=== PATIENT | female | born 1955 | race Two or more races ===

== ENCOUNTER 2021-05-11 12:49 | Inpatient (IN) | payer MEDICAID ==
[~2021-05-11] VITALS: Ht 172.7 cm; Wt 90.7 kg
--- NOTE | 2021-05-11 13:16 | NUR ---
FROM HOME FOR RIGHT LOWER QUANDRANT PAIN. RATES PAIN 10/10. ABDOMEN SOFT AND NON-DISTENDED. IN ROOM AIR AND DENIES SOB. RESPIRATION REGULAR AND UNLABORED. ATTACHED TO THE MONITOR. WILL CONTINUE TO MONITOR THE PATIENT.
[2021-05-11] MEDS ORDERED: ONDANSETRON HCL/PF 4 MG/2 ML VIAL ONE (13:41)
--- NOTE | 2021-05-11 13:45 | NUR ---
SALINE LOCK ESTABLISHED, RAC 20G
--- NOTE | 2021-05-11 13:54 | NUR ---
LAB AT BEDSIDE
[2021-05-11] MEDS ORDERED: ONDANSETRON HCL/PF - ER 4 MG/2 ML VIAL IV ONE (14:00)
[2021-05-11] MEDS ORDERED: IV NS 0.9% 1,000 ML BAG IV ONE ×2 (14:00→15:00)
[2021-05-11 14:04] LABS: BASOPHILS % (AUTO) 0.2 % (0.0-2.0); EOSINOPHILS % (AUTO) 0.3 % (0.0-6.0); HEMATOCRIT 48 % (33-45); LYMPHOCYTES # (AUTO) 0.8 K/uL (0.8-4.8); LYMPHOCYTES % (AUTO) 4.9 % (20.0-44.0); MEAN CORPUSCULAR HGB CONC 34 g/dl (31.0-36.0); MEAN CORPUSCULAR VOLUME 97 fL (82-100); MONOCYTES # (AUTO) 0.1 K/uL (0.1-1.30); MONOCYTES % (AUTO) 0.5 % (2.0-12.0); NEUTROPHILS # (AUTO) 14.7 K/uL (1.8-8.9); NEUTROPHILS % (AUTO) 94.1 % (43.0-81.0); PLATELET COUNT (AUTO) 264 K/uL (150-450); RED BLOOD CELL COUNT(AUTO) 4.94 MIL/uL (4.0-5.2); WHITE BLOOD COUNT (AUTO) 15.6 K/uL (4.3-11.0)
[2021-05-11 14:05] LABS: CALCIUM, SERUM 9.3 mg/dL (8.5-10.1); CREATININE 0.8 mg/dL (0.6-1.3); POTASSIUM 4.1 mmol/L (3.5-5.1)
[2021-05-11 14:12] LABS: ALBUMIN 4.4 g/dL (3.4-5.0); BILIRUBIN,DIRECT 0.3 mg/dL (0.0-0.2); BILIRUBIN,TOTAL 1.2 mg/dL (0.2-1.0); TOTAL PROTEIN, SERUM 7.9 g/dL (6.4-8.2)
[2021-05-11] MEDS ORDERED: IV NS 0.9% 250 ML IV ONE (14:22)
[2021-05-11] MEDS ORDERED: IOHEXOL-300 100 ML VIAL IV ONE (14:22)
--- NOTE | 2021-05-11 14:25 | NUR ---
THE PATIENT IS IN THE RESTROOM
[2021-05-11] MEDS ORDERED: CEFTRIAXONE 1GM BAG (ER ONLY) 50 ML IV ONE ×2 (14:30→14:51)
[2021-05-11] MEDS ORDERED: METRONIDAZOLE 500MG/ NS 100ML 100 ML IV ONE (14:30)
--- NOTE | 2021-05-11 14:30 | NUR ---
URINE COLLECTED AND SENT TO THE LAB
--- NOTE | 2021-05-11 14:32 | NUR ---
THE PATIENT IS TAKEN TO CT
--- NOTE | 2021-05-11 14:41 | NUR ---
THE PATIENT IS BACK FROM CT
--- NOTE | 2021-05-11 14:57 | NUR ---
CHIP ON THE PHONE WITH DR. PEOPLES.
[2021-05-11] MEDS ORDERED: PITA2TAB PO (15:08)
[2021-05-11] MEDS ORDERED: LEVO125T8 PO (15:08)
[2021-05-11] MEDS ORDERED: ASCO-352 PO (15:12)
[2021-05-11] MEDS ORDERED: MULT-447 PO (15:12)
[2021-05-11 15:20] LABS: BILIRUBIN,URINE Negative (NEGATIVE); COLOR,URINE YELLOW (YELLOW); LEUKOCYTE ESTERASE ,URINE Negative (NEGATIVE); NITRITE, URINE Negative (NEGATIVE); PROTEIN,URINE Negative (NEGATIVE); UGLUCOSE Negative (NEGATIVE); UROBILINOGEN,URINE 0.2 EU/dL (0.2)
--- NOTE | 2021-05-11 15:24 | NUR ---
COVID SWAB DONE AND SENT TO THE LAB
[2021-05-11] MEDS ORDERED: IV LR 1000 ML 1,000 ML BAG IV ONE (16:00)
--- NOTE | 2021-05-11 16:09 | NUR ---
REPORT GIVEN TO BO MAYS. PT AWAITING TRANSFER TO FLOOR.
--- NOTE | 2021-05-11 16:54 | NUR ---
THE PATIENT IS TRANSFERED TO ROOM 307 IN STABLE CONDITION AND PER POLICY.
--- NOTE | 2021-05-11 17:00 | NUR ---
[employer]ATION INSPECT[employer]RARY MEDIA SPECIALIST NOTES RECEIVED ADMISSION FROM ER. PATIENT A/O X4, ABLE TO MAKE NEEDS KNOWN. PATIENT ON ROOM AIR; BREATHING EVEN AND UNLABORED; NO SOB PRESENT. COMPLAINING OF MILD PAIN 4 OUT OF 10. VS WNL EXCEPT MILD FEVER OF 100.4. PRN TYLENOL ADMINISTERED. SAFETY PRECAUTIONS IN PLACE; BED IN LOW POSITION AND LOCKED, RAILS UP X2, CALL LIGTH WITHIN REACH. WILL CONTINUE TO MONITOR PATIENT.
[2021-05-11] MEDS: IV NS 0.9% 1,000 ML IV PRN (17:47)
[2021-05-11] MEDS: ACETAMINOPHEN 325 MG TABLET PO PRN (17:58)
[2021-05-11] MEDS: ATORVASTATIN 10 MG TABLET PO SCH (17:58)
[2021-05-11 18:00] VITALS: BP 128/79
[2021-05-11] MEDS ORDERED: Z GUARD REMEDY 2 OZ OINT TP PRN (18:00)
[2021-05-11] MEDS ORDERED: ONDANSETRON HCL/PF 4 MG/2 ML VIAL IVP PRN (18:00)
[2021-05-11] MEDS ORDERED: MORPHINE SULFATE INJ 2 MG/ML DISP.SYRIN IV PRN (18:00)
--- NOTE | 2021-05-11 18:47 | NUR ---
[facility] CAMER[facility]AN CLOSING NOTES: PATIENT REMAINS IN BED, AWAKE, A/OX4. PATIENT ON ROOM AIR; BREATHING EVEN AND UNLABORED; NO SOB NOTED. TELE MONITOR WITH A CURRENT READING OF NSR 76. RAC IV ACCESS PRESENT AND INTACT RUNNING NS @75 MLS/HR. ALL NEEDS ATTENDED. SAFETY PRECAUTIONS IN PLACE; BED IN LOW POSITION AND LOCKED, RAILS UP X2, CALL LIGHT WITHIN REACH. WILL ENDORSE TO CDA TEACHER NURSE.
[2021-05-11] MEDS: PIPERACILLIN /TAZOBACTAM 3.375 G in IV D5W 50 ML IV SCH (19:03)
--- NOTE | 2021-05-11 19:40 | NUR ---
television journalist opening received patient a/ox4. does not want to be disturbed, per patient she wants to sleep/rest for her surgery tomorrow. no s/s of apparent distress, tolerating room air. denies pain. tele monitor reading sinus rhythm 70's. IV NS running @75ml/hr. no fever at this time. will cont. to monitor patient.
[2021-05-11 20:00] VITALS: BP 86/46
--- NOTE | 2021-05-11 20:30 | NUR ---
ms rn note patient low bp, 86/46. asymptomatic. stable at this time. will cont. to monitor.
[2021-05-12] VITALS: BP 139/58
--- NOTE | 2021-05-12 | NUR ---
telephone clerk note MRSA Surveillance both nares done at this time.
[2021-05-12] MEDS: PIPERACILLIN /TAZOBACTAM 3.375 G in IV D5W 50 ML IV SCH ×4 (00:08→17:02)
[2021-05-12 04:00] VITALS: BP 146/68
--- NOTE | 2021-05-12 05:30 | NUR ---
ms rn note patient taken down by OR at this time, very enthusiastic. v/s as follow: bp- 97/59, t- 98.0, p-73, rr-20, 02 sat 98% in room air. patient will come back after surgery according to OR nurse. Oxygen ready at bed side.
[2021-05-12] MEDS ORDERED: BUPIVACAINE 0.5 % PF 150 MG/30 ML VIAL ONE (05:44)
[2021-05-12] MEDS ORDERED: FENTANYL PF 100MCG/2ML AMPUL ONE ×2 (05:51→06:55)
[2021-05-12] MEDS ORDERED: MIDAZOLAM HCL 2 MG/2ML VIAL ONE (05:51)
[2021-05-12] MEDS ORDERED: SUCCINYLCHOLINE CHLORIDE 20 MG/ML VIAL ONE (05:52)
[2021-05-12] MEDS ORDERED: PROPOFOL 20 ML IV ONE (05:52)
[2021-05-12] MEDS ORDERED: ROCURONIUM BROMIDE 50 MG/5 ML ONE (05:52)
[2021-05-12] MEDS ORDERED: SEVOFLURANE 250 ML BOTTLE IH ONE (05:53)
--- NOTE | 2021-05-12 06:04 | NUR ---
telecommunications equipment installer note Non-administered Zosyn given in the OR by OR nurse.
[2021-05-12 06:12] LABS: BASOPHILS % (AUTO) 0.3 % (0.0-2.0); EOSINOPHILS % (AUTO) 0.9 % (0.0-6.0); HEMATOCRIT 38 % (33-45); HEMOGLOBIN 12.9 g/dL (11.5-14.8); LYMPHOCYTES % (AUTO) 7.2 % (20.0-44.0); MEAN CORPUSCULAR HGB CONC 34 g/dl (31.0-36.0); MEAN CORPUSCULAR VOLUME 98 fL (82-100); MONOCYTES # (AUTO) 0.6 K/uL (0.1-1.30); MONOCYTES % (AUTO) 4.2 % (2.0-12.0); NEUTROPHILS # (AUTO) 11.9 K/uL (1.8-8.9); NEUTROPHILS % (AUTO) 87.4 % (43.0-81.0); PLATELET COUNT (AUTO) 209 K/uL (150-450); RED BLOOD CELL COUNT(AUTO) 3.88 MIL/uL (4.0-5.2); WHITE BLOOD COUNT (AUTO) 13.6 K/uL (4.3-11.0)
[2021-05-12 06:49] LABS: CALCIUM, SERUM 8.4 mg/dL (8.5-10.1); CREATININE 0.8 mg/dL (0.6-1.3); POTASSIUM 3.4 mmol/L (3.5-5.1); TOTAL PROTEIN, SERUM 5.8 g/dL (6.4-8.2)
--- NOTE | 2021-05-12 06:56 | NUR ---
telesales agent note Patient Blood culture came back + for Gram Negative Rods. Reported result to Doctor Kye.
--- NOTE | 2021-05-12 07:58 | NUR ---
CUSTOMER DEVELOPMENT REPRESENTATIVE NOTE Pt back from [facility]-appendectomy, awake, No SOB, no respiratory distress. Has 3 incision on abdomen with mepilex on sites, with no s/sx bleeding. Orders to resume diet, noted and carried out. Patient states current pain is tolerable 3/10, received fentanyl tolerated well. Safety precautions implemented, bed locked in lowest position, call light within reach.
[2021-05-12 08:00] VITALS: BP 130/74
[2021-05-12] MEDS: ASCORBIC ACID 500 MG TABLET PO SCH (08:42)
[2021-05-12] MEDS: LEVOTHYROXINE SODIUM 125 MCG TABLET PO SCH (08:43)
[2021-05-12] MEDS: MULTIVIT W/MINERALS 1 TAB TABLET PO SCH (08:43)
[2021-05-12] MEDS ORDERED: POTASSIUM CHLORIDE 20 MEQ TAB.PRT.SR PO ONE (10:00)
[2021-05-12 16:00] VITALS: BP 124/60
[2021-05-12] MEDS: ACETAMINOPHEN 325 MG TABLET PO PRN (17:02)
[2021-05-12] MEDS: ATORVASTATIN 10 MG TABLET PO SCH (17:02)
--- NOTE | 2021-05-12 18:56 | NUR ---
EDGER LINER CLOSING NOTE Pt is A/O X 2 able to mouth words in yi, on mechanical vent, no respiratory distress, no SOB. Enteral feeding patent with ongoing feeding no residual obtained, HOB remains elevated >45%. Complains of anxiety-relieved after administration of ativan. IV site TOMMY/RFA patent and intact, wound care rendered. AM/PM care rendered. Safety precautions implemented, bed locked in lowest position, call light within reach. Seen and examined by DNP with orders to hold 0900 k and labs in AM. Spoke with daughter thalia, gave status report. Addendum: 05/12/21 at 1911 by SUN WANG RN Incorrrect documentation.
--- NOTE | 2021-05-12 19:11 | NUR ---
RN CLOSING NOTE Pt is A/O X 4, no respiratory distress noted, no SOB. RAC IV line with no s/sx of infiltration currently running hydration. S/P lap-appendectomy dressings intact, medicated with tylenol. Safety precautions implemented, bed locked in lowest postion, call light within reach.
--- NOTE | 2021-05-12 19:51 | NUR ---
MS RN Opening Notes Patient was last seen awake in bed resting. Pt is A/O X 4. Patient's on room air with no respiratory distress noted. Patient has an IV access on her RAC gauge# 20. Patient's in no acute distress at this time. S/P lap-appendectomy today with dressings intact. Safety precautions implemented: Bed locked, bed alarm on, side rails upx3, and call light within reach of the patient Will continue to monitor the patient.
[2021-05-12 20:00] VITALS: BP 149/71
[2021-05-13] MEDS: PIPERACILLIN /TAZOBACTAM 3.375 G in IV D5W 50 ML IV SCH ×3 (00:10→12:06)
[2021-05-13] MEDS: IV NS 0.9% 1,000 ML IV PRN (05:31)
[2021-05-13 06:07] LABS: CALCIUM, SERUM 8.7 mg/dL (8.5-10.1); CREATININE 0.8 mg/dL (0.6-1.3); POTASSIUM 4.5 mmol/L (3.5-5.1)
[2021-05-13 06:29] LABS: BASOPHILS % (AUTO) 0.3 % (0.0-2.0); EOSINOPHILS % (AUTO) 1.1 % (0.0-6.0); HEMATOCRIT 36 % (33-45); HEMOGLOBIN 12.3 g/dL (11.5-14.8); LYMPHOCYTES # (AUTO) 1.9 K/uL (0.8-4.8); LYMPHOCYTES % (AUTO) 14.3 % (20.0-44.0); MEAN CORPUSCULAR HGB CONC 34 g/dl (31.0-36.0); MEAN CORPUSCULAR VOLUME 98 fL (82-100); MONOCYTES % (AUTO) 7.7 % (2.0-12.0); NEUTROPHILS # (AUTO) 10.1 K/uL (1.8-8.9); NEUTROPHILS % (AUTO) 76.6 % (43.0-81.0); PLATELET COUNT (AUTO) 214 K/uL (150-450); RED BLOOD CELL COUNT(AUTO) 3.71 MIL/uL (4.0-5.2); WHITE BLOOD COUNT (AUTO) 13.2 K/uL (4.3-11.0)
--- NOTE | 2021-05-13 07:20 | NUR ---
MS RN Notes Patient seen in bed resting, awake and verbally responsive. A/O X4, able to make needs known. Breathing even and unlabored, on room air, no respiratory distress noted. IV access on RAC #20, intact and patent, ivf infusing well. S/P lap-appendectomy yesterday with dressings intact as per overnight caregiver rn report. Safety precautions implemented. Will continue to monitor..
--- NOTE | 2021-05-13 07:25 | NUR ---
MS RN Closing Notes Patient was last seen awake in bed resting. Pt is A/O X 4. Patient's on room air with no respiratory distress noted. Patient has an IV access on her RAC gauge# 20. Patient's in no acute distress at this time. S/P lap-appendectomy today with dressings intact. Safety precautions implemented: Bed locked, side rails upx3, and call light within reach of the patient. Endorsed care to the day shift nurse. Addendum: 05/13/21 at 0734 by YAMILETH FINNEGAN RN MS RN Closing Notes Patient was last seen awake in bed resting. Pt is A/O X 4. Patient's on room air with no respiratory distress noted. Patient has an IV access on her RAC gauge# 20. Patient's in no acute distress at this time. S/P lap-appendectomy yesterday with dressings intact. Safety precautions implemented: Bed locked, side rails upx3, and call light within reach of the patient. Endorsed care to the day shift nurse.
[2021-05-13 08:00] VITALS: BP 154/74
[2021-05-13] MEDS: LEVOTHYROXINE SODIUM 125 MCG TABLET PO SCH (08:05)
[2021-05-13] MEDS: ASCORBIC ACID 500 MG TABLET PO SCH (08:05)
[2021-05-13] MEDS: MULTIVIT W/MINERALS 1 TAB TABLET PO SCH (08:05)
--- NOTE | 2021-05-13 15:15 | NUR ---
RN NOTES PATIENT WAS SEEN BY DR. BOYER AND DR. PEOPLES TODAY W/ CLEARANCE FOR DISCHARGE TO HOME. DISCHARGE INSTRUCTION AND EDUCATION PROVIDED TO PATIENT AND VERBALIZED UNDERSTANDING. PRESCRIPTION FORM GIVEN TO PATIENT. DISCHARGE FORM AND BELONGINGS LIST FORM SIGNED BY PATIENT; ALL BELONGINGS ACCOUNTED FOR. NAME ARMBAND REMOVED AND KEPT BY PATIENT FOR HER RECORDS; IV LINE REMOVED. NO SKIN ISSUES NOTED. SURGICAL SITES INTACT W/ DRESSING CLEAN AND DRY; AFTERCARE TEACHING GIVEN AND UNDERSTOOD BY PATIENT. PATIENT WAS AMBULATORY AND ACCOMPANIED BY HER DAUGHTER TO THE LOBBY AND PICKED UP VIA PRIVATE CAR. CHARGE NURSE AND MD AWARE OF DISCHARGE.
== END 2021-05-13 15:27 | disposition home or self-care (01) | DRG 234 ==
LOC: ER 12:54 → TELE 16:13 → MED 05-12 09:30
PROVIDERS: ADMIT Internal Medicine; ATTEND Internal Medicine
PROC: 0DTJ4ZZ Resection of Appendix, Percutaneous Endoscopic Approach (ICD-10-PCS; principal; 2021-05-12)
DX: K35.30 Acute appendicitis with localized peritonitis, without perforation or gangrene (principal); E03.9 Hypothyroidism, unspecified; Z90.13 Acquired absence of bilateral breasts and nipples; Z20.822 Contact with and (suspected) exposure to COVID-19; Z79.890 Hormone replacement therapy; Z79.899 Other long term (current) drug therapy; M54.10 Radiculopathy, site unspecified; Z85.3 Personal history of malignant neoplasm of breast
CPT/HCPCS: 36415; 80048-TC; 80053-TC; 80061-TC; 80076-TC; 83605-TC; 83690-TC; 83735-TC; 84100-TC; 84443-TC; 85025-TC; 85610-TC; 86850-TC; 87040-TC; 87081-TC; 87186-TC; 88304-TC; C9803; G0378; J0330; J0360; J0696; J1100; J1885; J2250; J2270; J2370; J2405; J2543; J2704; J3010; J3490; J7030; J7050; J7060; J7120; Q9967

== ENCOUNTER 2022-12-14 19:12 | Emergency (ER) | payer OTHER ==
[~2022-12-14] VITALS: Ht 167.6 cm; Wt 92.1 kg
[~2022-12-14 19:12] MED LIST: ASCO-352 PO; LEVO125T8 PO; MULT-447 PO; PITA2TAB PO
--- NOTE | 2022-12-14 19:40 | NUR ---
BIBDAUGHTER FROM HOME W/ CC OF LEFT LOWER LEG SWELLING AFTER TAKING NEW MEDS(BREO,NAPROXEN,GABAPENTIN) PT DEVELOPED INSOMNIA AFTER TAKING MEDS. PLACED COMFORTABLY IN BED, VITALS CHECKED. PT IS AAOX4, AMBULATORY.
--- NOTE | 2022-12-14 20:19 | NUR ---
ARCHERY INSTRUCTOR AT BEDSIDE
[2022-12-14] MEDS ORDERED: IPRATROPIUM NEB FS 0.5 MG/2.5 ML AMPUL.NEB NEB ONE (20:30)
[2022-12-14] MEDS ORDERED: predniSONE 20 MG TABLET PO ONE (20:30)
[2022-12-14] MEDS ORDERED: ALBUTEROL FS 2.5 MG/3 ML VIAL.NEB NEB ONE (20:30)
[2022-12-14] MEDS ORDERED: predniSONE 20 MG TABLET ONE (21:01)
[2022-12-14] MEDS ORDERED: IPRATROPIUM NEB FS 0.5 MG/2.5 ML AMPUL.NEB ONE (21:02)
[2022-12-14] MEDS ORDERED: ALBUTEROL FS 2.5 MG/3 ML VIAL.NEB ONE (21:02)
--- NOTE | 2022-12-14 21:19 | NUR ---
XR AT BEDSIDE
[2022-12-14 21:41] LABS: BASOPHILS # (AUTO) 0.1 K/uL (0.0-0.2); BASOPHILS % (AUTO) 1.2 % (0.0-2.0); EOSINOPHILS % (AUTO) 4.8 % (0.0-6.0); HEMATOCRIT 46 % (33-45); HEMOGLOBIN 14.9 g/dL (11.5-14.8); LYMPHOCYTES % (AUTO) 33.8 % (20.0-44.0); MEAN CORPUSCULAR HGB CONC 33 g/dl (31.0-36.0); MEAN CORPUSCULAR VOLUME 94 fL (82-100); MONOCYTES # (AUTO) 0.5 K/uL (0.1-1.30); MONOCYTES % (AUTO) 5.4 % (2.0-12.0); NEUTROPHILS # (AUTO) 4.8 K/uL (1.8-8.9); NEUTROPHILS % (AUTO) 54.8 % (43.0-81.0); PLATELET COUNT (AUTO) 248 K/uL (150-450); RED BLOOD CELL COUNT(AUTO) 4.87 MIL/uL (4.0-5.2); WHITE BLOOD COUNT (AUTO) 8.8 K/uL (4.3-11.0)
[2022-12-14 21:54] LABS: CALCIUM, SERUM 9.5 mg/dL (8.5-10.1); CREATININE 0.7 mg/dL (0.6-1.3)
[2022-12-14] MEDS ORDERED: HYDR-3980 PO (22:37)
--- NOTE | 2022-12-14 22:42 | NUR ---
Patient discharged to home in stable condition. Written and verbal after care instructions given. Patient verbalizes understanding of instruction.
[2022-12-14 22:45] VITALS: BP 182/89
== END 2022-12-14 22:45 | disposition home or self-care (01) ==
LOC: ER 19:23
DX: M79.89 Other specified soft tissue disorders (principal); Z85.3 Personal history of malignant neoplasm of breast
CPT/HCPCS: 99285; 93970; 71045; 93005; 85025; 80048; 36415; 84484; 94640; J7512